=== PATIENT | male | born 1965 | race Caucasian/White ===

== ENCOUNTER 2024-12-25 09:18 | Day surgery (SDC) | payer OTHER ==
[~2024-12-25] VITALS: Ht 180.3 cm; Wt 65.5 kg
[~2024-12-25 09:18] MED LIST: Lactated Ringer's 1,000 ML IV ONE; propofoL 50 ML IV ONE
[2024-12-25] MEDS ORDERED: ATORVASTATIN CA40 MG (09:30)
[2024-12-25] MEDS ORDERED: OMEP20ER (09:31)
[2024-12-25] MEDS ORDERED: GABA300 (09:31)
[2024-12-25] MEDS ORDERED: Lactated Ringer's 1,000 ML IV ONE (10:19)
[2024-12-25 12:02] VITALS: BP 127/82
== END 2024-12-25 11:55 | disposition home or self-care (01) ==
LOC: ORSCSDS 09:18
PROVIDERS: Specialist
PROC: 0DB98ZX Excision of Duodenum, Via Natural or Artificial Opening Endoscopic, Diagnostic (ICD-10-PCS; principal; 2024-12-25 10:45)
PROC: 0DB68ZX Excision of Stomach, Via Natural or Artificial Opening Endoscopic, Diagnostic (ICD-10-PCS; principal; 2024-12-25 10:45)
PROC: 0DBM8ZX Excision of Descending Colon, Via Natural or Artificial Opening Endoscopic, Diagnostic (ICD-10-PCS; principal; 2024-12-25 10:45)
PROC: 0DB58ZX Excision of Esophagus, Via Natural or Artificial Opening Endoscopic, Diagnostic (ICD-10-PCS; principal; 2024-12-25 10:45)
DX: K21.9 Gastro-esophageal reflux disease without esophagitis (principal); K44.9 Diaphragmatic hernia without obstruction or gangrene; R14.0 Abdominal distension (gaseous); R10.13 Epigastric pain; R19.4 Change in bowel habit; D37.4 Neoplasm of uncertain behavior of colon; K64.8 Other hemorrhoids; K57.30 Diverticulosis of large intestine without perforation or abscess without bleeding; Z79.899 Other long term (current) drug therapy; F17.210 Nicotine dependence, cigarettes, uncomplicated
CPT/HCPCS: 88305; 88342; J2704; J7120

== ENCOUNTER 2025-02-18 19:02 | Emergency (ER) | payer OTHER ==
[~2025-02-18] VITALS: Ht 180.3 cm; Wt 63.5 kg
[~2025-02-18 19:02] MED LIST changes: +ATORVASTATIN CA40 MG; +GABA300; -Lactated Ringer's 1,000 ML IV ONE; +OMEP20ER; -propofoL 50 ML IV ONE
[2025-02-18 19:13] VITALS: BP 122/90
[2025-02-18] MEDS ORDERED: Ketorolac Tromethamine 15mg Vial IM ONE (21:05)
[2025-02-18] MEDS ORDERED: RX Prepack 6 Tabs Oxycodone 5mg UD ONE (21:10)
== END 2025-02-18 21:18 | disposition home or self-care (01) ==
LOC: ER 19:02
DX: S02.2XXB Fracture of nasal bones, initial encounter for open fracture (principal); Y04.2XXA Assault by strike against or bumped into by another person, initial encounter; Z88.8 Allergy status to other drugs, medicaments and biological substances; Z79.899 Other long term (current) drug therapy
CPT/HCPCS: 12011; 70486; 96372-59; 99283-25; A9270; J1885